=== PATIENT | male | born 1965 | race Caucasian/White ===

== ENCOUNTER → 2018-05-22 | Outpatient (CLI) | payer BC ==
--- NOTE | 2018-05-25 07:10 | Diagnostic Imaging Report ---
History: Neck pain, radiculopathy symptoms, pain radiates to base of skull. Comparison studies: None Technique: Sagittal T1, T2 and IR, axial T2, axial T2*gradient echo and axial T1 Intravenous contrast: None Findings: Alignment: Mild mild cervical kyphosis centered at C5-C6. Cervicomedullary junction: No abnormalities. Patent foramen magnum. Soft tissues: No T2 hyperintense inflammatory changes. Spinal cord: Normal in size and signal from the foramen magnum through T1. Vertebrae: No fractures, infection or neoplasm. Degenerative changes: C2-C3: Patent canal and foramina. C3-C4: Mildly degenerated disc. Patent canal and foramina. C4-C5: Mildly degenerated disc. Patent canal and foramina. C5-C6: Mildly degenerated disc. Disc osteophyte complex indents the thecal sac without significant canal stenosis. 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 C6-C7: Mildly degenerated disc. Disc osteophyte complex indents the thecal sac but does not result in significant canal stenosis. 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 No significant left foraminal stenosis. C7-T1: Patent canal and foramina. IMPRESSION: 1. 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 2. Mild degenerative foraminal stenosis bilaterally at C5-C6 and on the right at C6-C7. 3. No significant canal stenosis. Signed by: Dr. Edson Gray M.D. on 05/25/2018 7:07 AM
== END ==
LOC: MRI 14:51
PROVIDERS: ATTEND Psychiatry & Neurology Neurology
DX: M54.12 Radiculopathy, cervical region (principal)
CPT/HCPCS: 72141